=== PATIENT | female | born 1955 | race Caucasian/White ===

== ENCOUNTER 2020-01-18 13:06 | Outpatient (CLI) | payer MEDICAID ==
[~2020-01-18] VITALS: Ht 167.6 cm; Wt 74.4 kg
[~2020-01-18 13:06] MED LIST: ALBU18HF2 INH; BECL8.7A7 INH; DOCU-28 PO; ERGO500041 PO; GABA-532 PO; IBUP100O19 PO; IPRA3AMP9 IH; LEVO175T2 PO; METO5TAB98 PO; MYL80T PO; NICO-687 TOP; OMEP20CA15 PO; PRE0.625T VG; TOPI50TA24 PO; VENL75TA90 PO
[2020-01-18 15:04] LABS: BASOPHILS % (AUTO) 0.4 % (0-1); EOSINOPHILS # (AUTO) 0.3 X10'3 (0-0.9); EOSINOPHILS % (AUTO) 3.3 % (0-6); LYMPHOCYTES # (AUTO) 3.2 X10'3 (1.1-4.8); LYMPHOCYTES % (AUTO) 32.9 % (21-51); MEAN CORPUSCULAR HGB CONC 33.5 g/dL (33.0-36.5); MEAN CORPUSCULAR VOLUME 92.3 FL (78-98); MEAN PLATELET VOLUME 10.4 FL (7.4-10.4); MONOCYTES # (AUTO) 0.6 X10'3 (0-0.9); MONOCYTES % (AUTO) 6.4 % (2-12); NEUTROPHILS # (AUTO) 5.5 X10'3 (1.8-7.7); PRE OP HEMATOCRIT 40.6 % (35.0-45.0); PRE OP HEMOGLOBIN 13.6 g/dL (12.0-16.0); PRE OP PLATELET COUNT 210 X10'3 (140-440); RED CELL DISTRIBUTION WIDTH 14.1 % (11.5-14.5)
[2020-01-18 15:18] LABS: ALBUMIN 3.9 G/DL (3.4-5.0); ALBUMIN/GLOBULIN RATIO 1.3 (1.1-1.5); ALKALINE PHOSPHATASE 67 IU/L (46-116); BLOOD UREA NITROGEN 9 MG/DL (7-18); BUN/CREATININE RATIO 9.3 (6.6-38.0); CALCIUM 8.5 MG/DL (8.5-10.1); CHLORIDE 108 MMOL/L (99-107); CREATININE 0.97 MG/DL (0.40-0.90); PRE OP ALT 20 U/L (30-65); PRE OP ANION GAP 10 (8-16); PRE OP AST 14 U/L (10-37); PRE OP BILIRUB, TOTAL 0.4 MG/DL (0.0-1.0); PRE OP GLUCOSE 87 MG/DL (70-104); PRE OP SODIUM 143 MMOL/L (135-145); TOTAL CARBON DIOXIDE 25.4 MMOL/L (24-32); TOTAL PROTEIN 6.8 G/DL (6.4-8.2); eGFR 58 ML/MIN
[2020-01-18] MEDS ORDERED: IBUP-1984 PO (17:02)
[2020-01-18] MEDS ORDERED: GABA-530 PO (17:02)
[2020-01-18] MEDS ORDERED: VITAMIN B12 IM (17:12)
[2020-01-18] MEDS ORDERED: HYDR-3965 PO (17:12)
[2020-01-18] MEDS ORDERED: DICL-182 PO (17:12)
[2020-01-18] MEDS ORDERED: VITAMIN D2 PO (17:12)
[2020-01-18] MEDS ORDERED: LEVO50TA8 PO (17:12)
[2020-01-18] MEDS ORDERED: ESTR0.5T28 PO (17:12)
[2020-01-18] MEDS ORDERED: CYCL-1 PO (17:12)
[2020-01-18] MEDS ORDERED: GABA300C PO (17:13)
[2020-01-26] MEDS ORDERED: ringers solution, lacted 1,000 ML IV SCH (05:00)
[2020-01-26] MEDS ORDERED: oxyCODONE SR 10mg (sust. release) tab -2 tabs (20mg) PO ONE (05:30)
[2020-01-26] MEDS ORDERED: famotidine 20mg tablet PO ONE (05:30)
[2020-01-26] MEDS ORDERED: vancomycin 1,500 MG in NS 300ml IV soln IV ONE (05:30)
[2020-01-26] MEDS ORDERED: gabapentin 300mg capsule PO ONE (05:30)
[2020-01-26] MEDS ORDERED: cefazolin/dext.iso 2gm/50ml 50 ML IV ONE (05:30)
[2020-01-26] MEDS ORDERED: ascorbic acid 500mg tablet PO ONE (05:30)
[2020-01-26] MEDS ORDERED: celeCOXIB 100mg capsule PO ONE (05:30)
== END 2020-01-18 23:59 | disposition home or self-care (01) ==
LOC: PRE-OP 13:06 → EDSTATUS 01-26 10:15
PROVIDERS: ATTEND Orthopaedic Surgery
DX: Z01.818 Encounter for other preprocedural examination (principal); Z11.59 Encounter for screening for other viral diseases; S83.241D Other tear of medial meniscus, current injury, right knee, subsequent encounter; S83.281D Other tear of lateral meniscus, current injury, right knee, subsequent encounter; S83.282D Other tear of lateral meniscus, current injury, left knee, subsequent encounter; M17.0 Bilateral primary osteoarthritis of knee; X58.XXXD Exposure to other specified factors, subsequent encounter
CPT/HCPCS: 36415; 80053; 85025; U0003

== ENCOUNTER 2020-02-16 08:24 | Day surgery (SDC) | payer MEDICAID ==
[2020-02-09 14:36] LABS: BASOPHILS % (AUTO) 0.5 % (0-1); EOSINOPHILS # (AUTO) 0.3 X10'3 (0-0.9); EOSINOPHILS % (AUTO) 2.8 % (0-6); LYMPHOCYTES # (AUTO) 3.1 X10'3 (1.1-4.8); LYMPHOCYTES % (AUTO) 31.4 % (21-51); MEAN CORPUSCULAR HEMOGLOBIN 30.7 PG (27.0-31.0); MEAN CORPUSCULAR HGB CONC 33.6 g/dL (33.0-36.5); MEAN CORPUSCULAR VOLUME 91.5 FL (78-98); MEAN PLATELET VOLUME 10.2 FL (7.4-10.4); MONOCYTES # (AUTO) 0.6 X10'3 (0-0.9); MONOCYTES % (AUTO) 5.7 % (2-12); NEUTROPHILS # (AUTO) 5.8 X10'3 (1.8-7.7); NEUTROPHILS % (AUTO) 59.6 % (42-75); PRE OP HEMATOCRIT 43.3 % (35.0-45.0); PRE OP HEMOGLOBIN 14.5 g/dL (12.0-16.0); PRE OP PLATELET COUNT 202 X10'3 (140-440); RED BLOOD COUNT 4.73 X10'6 (4.20-5.60); RED CELL DISTRIBUTION WIDTH 14.1 % (11.5-14.5)
[2020-02-09 14:54] LABS: ALBUMIN 4.1 G/DL (3.4-5.0); ALBUMIN/GLOBULIN RATIO 1.3 (1.1-1.5); ALKALINE PHOSPHATASE 73 IU/L (46-116); BLOOD UREA NITROGEN 8 MG/DL (7-18); BUN/CREATININE RATIO 8.9 (6.6-38.0); CALCIUM 8.6 MG/DL (8.5-10.1); CHLORIDE 106 MMOL/L (99-107); PRE OP ALT 23 U/L (30-65); PRE OP ANION GAP 6 (8-16); PRE OP AST 15 U/L (10-37); PRE OP BILIRUB, TOTAL 0.4 MG/DL (0.0-1.0); PRE OP GLUCOSE 88 MG/DL (70-104); PRE OP POTASSIUM 3.5 MMOL/L (3.4-5.1); PRE OP SODIUM 139 MMOL/L (135-145); TOTAL CARBON DIOXIDE 26.7 MMOL/L (24-32); TOTAL PROTEIN 7.2 G/DL (6.4-8.2); eGFR 63 ML/MIN
[~2020-02-16] VITALS: Ht 167.6 cm; Wt 74.8 kg
[2020-02-16] VITALS (8 sets, daily range): BP systolic 93–134; BP diastolic 47–86
[~2020-02-16 08:24] MED LIST changes: -BECL8.7A7 INH; +CHOL20004 PO; +CYAN10006 IM; +CYCL-1 PO; +DICL-182 PO; -ERGO500041 PO; +ESTR0.5T28 PO; +GABA300C PO; +HYDR-3965 PO; +IBUP-1984 PO; -IBUP100O19 PO; -IPRA3AMP9 IH; -LEVO175T2 PO; -MYL80T PO; -NICO-687 TOP; +POLY1DRO2 OP; -PRE0.625T VG; +albuterol 2.5 MG/3 ML nebule NEB ONE; +ascorbic acid 500mg tablet PO ONE; +ceFAZolin 2gm in dextrose, iso 50 ML IV ONE; +celeCOXIB 100mg capsule PO ONE; +famotidine 20mg tablet PO ONE; +gabapentin 300mg capsule PO ONE; +oxyCODONE SR 10mg (sust. release) tab -2 tabs (20mg) PO ONE; +ringers solution, lacted 1,000 ML IV SCH; +vancomycin 1,500 MG in NS 300ml IV soln IV ONE
[2020-02-16] MEDS ORDERED: triamcinolone acetonide 40mg/ml inj ONE (10:17)
[2020-02-16] MEDS ORDERED: BUPIVAcaine/PF 2.5 mg/ml (0.25%) 30ml vial ONE (10:18)
[2020-02-16] MEDS ORDERED: fentaNYL/PF 50MCG/1 ML 2ML syringe ONE (10:54)
[2020-02-16] MEDS ORDERED: midazolam 2 mg/2 ml injection ONE (10:54)
[2020-02-16] MEDS ORDERED: LIDOcaine 2% (20mg/ml) 5ml vial ONE (10:55)
[2020-02-16] MEDS ORDERED: propofol inj 20 ML IV ONE (10:55)
[2020-02-16] MEDS ORDERED: ondansetron/PF 4mg/2ml inj ONE (10:56)
[2020-02-16] MEDS ORDERED: dexamethasone sod phosphate 4mg/ml inj. ONE (10:56)
[2020-02-16] MEDS ORDERED: sevoflurane 250ml liquid IH ONE (10:57)
[2020-02-16] MEDS ORDERED: ringers solution, lacted 1,000 ML IV SCH (11:28)
[2020-02-16] MEDS ORDERED: morphine 4 MG/ML inj SYRINge IV PRN (11:30)
[2020-02-16] MEDS ORDERED: hydrALAZINE 20mg/ml inj. IV PRN (11:30)
[2020-02-16] MEDS ORDERED: morphine 2 MG/ML inj. syringe IV PRN (11:30)
[2020-02-16] MEDS ORDERED: labetalol 20mg/4ml (5mg/ml) syringe IV PRN (11:30)
[2020-02-16] MEDS ORDERED: ondansetron/PF 4mg/2ml inj IV PRN (11:30)
[2020-02-16] MEDS ORDERED: fentaNYL/PF 50MCG/1 ML 2ML syringe IV PRN ×2 (11:30)
--- NOTE | 2020-02-16 12:23 | NUR ---
Received from OR via , accompanied by Anesthesiologist DR GRAHAM and report given by Anesthesiolgist. AWAKE AND C/O PAIN TO BILAT KNEES. WILL ADRESS. VITALS STABLE. DRESSINGS DI. PALPABLE PULSES TO BILT FEET. FEET WARM AND PINK.
[2020-02-16] MEDS ORDERED: HYDROcodone/acetaminophen 5mg/325mg tablet PO ONE (13:00)
--- NOTE | 2020-02-16 13:43 | NUR ---
AWAKE AND ORIENTED. VITALS STABLE. DRESSINGS DI. STATES PAIN IMPROVING. HOME WITH A FRIEND AT THIS TIME.
== END 2020-02-16 13:43 | disposition home or self-care (01) ==
LOC: PAS 08:24
PROVIDERS: ATTEND Orthopaedic Surgery
DX: S83.241A Other tear of medial meniscus, current injury, right knee, initial encounter (principal); S83.281A Other tear of lateral meniscus, current injury, right knee, initial encounter; S83.242A Other tear of medial meniscus, current injury, left knee, initial encounter; S83.282A Other tear of lateral meniscus, current injury, left knee, initial encounter; M94.262 Chondromalacia, left knee; M94.261 Chondromalacia, right knee; G47.00 Insomnia, unspecified; G43.909 Migraine, unspecified, not intractable, without status migrainosus; K21.9 Gastro-esophageal reflux disease without esophagitis; G89.4 Chronic pain syndrome; F41.9 Anxiety disorder, unspecified; J45.909 Unspecified asthma, uncomplicated; F32.9 Major depressive disorder, single episode, unspecified; G40.909 Epilepsy, unspecified, not intractable, without status epilepticus; E78.5 Hyperlipidemia, unspecified; E03.9 Hypothyroidism, unspecified; E66.8 Other obesity; Z68.27 Body mass index [BMI] 27.0-27.9, adult; Z98.51 Tubal ligation status; Z90.710 Acquired absence of both cervix and uterus; M17.0 Bilateral primary osteoarthritis of knee; M81.0 Age-related osteoporosis without current pathological fracture; M19.031 Primary osteoarthritis, right wrist; F17.290 Nicotine dependence, other tobacco product, uncomplicated; F17.210 Nicotine dependence, cigarettes, uncomplicated; Z11.59 Encounter for screening for other viral diseases; Z98.890 Other specified postprocedural states; Z72.89 Other problems related to lifestyle; Z20.828 Contact with and (suspected) exposure to other viral communicable diseases; Z79.899 Other long term (current) drug therapy; X58.XXXA Exposure to other specified factors, initial encounter; Y93.89 Activity, other specified; Y92.89 Other specified places as the place of occurrence of the external cause; Y99.8 Other external cause status
CPT/HCPCS: 29873; 29879; 29880; 36415; 80053; 82948; 85025; J1100; J2001; J2250; J2405; J2704; J3010; J3301; J3370; J3490; J7040; U0003; A4215; A4618; A6250; A6449; A7000; J7120